=== PATIENT | female | born 1995 ===

== ENCOUNTER 2024-07-20 13:54 | Outpatient (CLI) | payer BC, SELFPAY ==
--- NOTE | ~2024-07-20 | US_ITS ---
EXAMINATION: US pelvic complete DATE: 07/20/2024 14:13 INDICATION: Displacement of intrauterine contraceptive device. TECHNIQUE: Multiple transabdominal sonographic images of the pelvis were obtained. COMPARISON: None. FINDINGS: The uterus measures 8.8 x 4.4 x 6.3 cm. There is no free fluid in the pelvis. The endometrial complex measures 6 mm in thickness. There is an intrauterine device in expected position. The right ovary me asures 4.3 x 2.1 x 2.2 cm. The left ovary measures 3.1 x 2.1 x 3.0 cm. There is normal vascular flow in the ovaries. IMPRESSION: 1. Intrauterine device in expected position. Reviewed, dictated and finalized at location A. [employer]
== END 2024-07-20 13:55 | disposition home or self-care (01) ==
PROVIDERS: PCP Nurse Practitioner Women's Health; Visit Provider Nurse Practitioner Women's Health
DX: T83.32XA Displacement of intrauterine contraceptive device, initial encounter (principal)
CPT/HCPCS: 76856